=== PATIENT | male | born 1965 | race Caucasian/White ===

== ENCOUNTER → 2023-11-07 09:57 | Outpatient (REF) | payer BC, SELFPAY | LOC: RAD 09:57 | PROVIDERS: ATTENDING PHYSICIAN Family Medicine | DX: R53.83 Other fatigue (principal); G47.09 Other insomnia; R82.81 Pyuria; F39 Unspecified mood [affective] disorder; M26.629 Arthralgia of temporomandibular joint, unspecified side | CPT/HCPCS: 76770 ==

== ENCOUNTER → 2024-01-02 13:09 | Outpatient (REF) | payer BC, SELFPAY | LOC: RAD 13:09 | PROVIDERS: ATTENDING PHYSICIAN Specialist; FAMILY PHYSICIAN Family Medicine | DX: N20.0 Calculus of kidney (principal) | CPT/HCPCS: 74018 ==

== ENCOUNTER 2024-01-08 06:26 | Day surgery (SDC) | payer OTHER, SELFPAY ==
[2024-01-02 12:49] VITALS: BMI 25.7
[2024-01-08 08:46] VITALS: BP 118/73
[2024-01-08 08:47] VITALS: BMI 25.7
[2024-01-08] MEDS: NORMOSOL-R/PLASMALYTE-A 1000 IV (09:43)
--- NOTE | 2024-01-08 09:48 | PTCARENOTE ---
Patient requesting IV in the Left arm but when putting tourniquet on patient did not have straight veins in the L hand and wrist area. IV inserted into the right hand without complications. Will monitor patient.
[2024-01-08 10:45] VITALS: BP 118/71; BP 118/73
[2024-01-08 11:00] VITALS: BP 118/76
[2024-01-08 11:25] VITALS: BP 111/72
[2024-01-08 11:50] VITALS: BP 114/78
[2024-01-08 12:10] VITALS: BP 134/82
== END 2024-01-08 12:25 | disposition home or self-care (01) ==
LOC: SDS 06:26
PROVIDERS: ATTENDING PHYSICIAN Specialist; FAMILY PHYSICIAN Family Medicine
DX: N20.0 Calculus of kidney (principal)
CPT/HCPCS: 50590; 36415; 93005

== ENCOUNTER → 2025-01-14 09:14 | Outpatient (REF) | payer BC, SELFPAY | LOC: RCS 09:14 | PROVIDERS: ATTENDING PHYSICIAN Internal Medicine Cardiovascular Disease; FAMILY PHYSICIAN Family Medicine | DX: R07.9 Chest pain, unspecified (principal) | CPT/HCPCS: 93306 ==

== ENCOUNTER → 2025-01-17 08:43 | Outpatient (REF) | payer BC, SELFPAY | LOC: RCS 08:43 | PROVIDERS: ATTENDING PHYSICIAN Internal Medicine Cardiovascular Disease; FAMILY PHYSICIAN Family Medicine | DX: R07.9 Chest pain, unspecified (principal) | CPT/HCPCS: 93017 ==